=== PATIENT | male | born 1970 ===

== ENCOUNTER 2017-10-21 16:44 | Emergency (ER) | payer OTHER ==
[2017-10-21 16:48] VITALS: BP 154/86; PULSE 101; RESP 18; TEMP 97.9; O2SAT 99
[2017-10-21 17:29] LABS: BASO # 0.1 K/uL (0.0-0.2); BASO % 1.1 % (0.0-2.0); EOS # 0.1 K/uL (0.0-0.7); EOS % 1.9 % (0.0-4.0); HEMATOCRIT 46.7 % (35.0-51.0); LYMPH # 2.9 K/uL (1.0-4.3); LYMPH % 41.9 % (20.0-40.0); MEAN CELL VOLUME 90.9 fl (80.0-94.0); MEAN CORPUSCULAR HEMOGLOBIN 31.3 pg (27.0-31.0); MEAN CORPUSCULAR HGB CONC 34.4 g/dL (33.0-37.0); MEAN PLATELET VOLUME 8.1 fl (7.2-11.7); MONO # 0.6 K/uL (0.0-0.8); NEUT # 3.2 K/uL (1.8-7.0); NEUT % 46.1 % (50.0-75.0); NRBC % 0.1 % (0.0-0.0); RED CELL DISTRIBUTION WIDTH 13.7 % (11.5-14.5); WHITE BLOOD COUNT 6.9 K/uL (4.8-10.8)
[2017-10-21 17:35] LABS: RBC URINE 1 /hpf (0-3); URINE BILIRUBIN NEGATIVE (NEGATIVE); URINE BLOOD SMALL (NEGATIVE); URINE COLOR YELLOW (YELLOW); URINE GLUCOSE (UA) >=500 mg/dL (Normal); URINE KETONE TRACE mg/dL (NEGATIVE); URINE LEUKOCYTE ESTERASE NEG Leu/uL (Negative); URINE PROTEIN 100 mg/dL (NEGATIVE); WBC URINE 1 /hpf (0-5)
--- NOTE | 2017-10-21 17:39 | ED PDOC ---
HPI: Psych/Substance Abuse Time Seen by Provider: 10/21/17 17:01 Chief Complaint (Nursing): Psychiatric Evaluation Chief Complaint (Provider): Psychiatric Evaluation History Per: Patient History/Exam Limitations: intoxication, other (Slurred Speech) Onset/Duration Of Symptoms: Days Additional Complaint(s): Jama is a 47 year old male who was brought by EMS to the Emergency Department for psychiatric evaluation. Patient expresses suicidal ideation, but does not have plan. Patient admits to drinking for the past 5 days after finding out is him PMD: No Family Provider Past Medical History Reviewed: Historical Data, Nursing Documentation, Vital Signs Vital Signs: Last Vital Signs Temp 97.9 F 10/21/17 16:46 Pulse 101 H 10/21/17 16:46 Resp 18 10/21/17 16:46 BP 154/86 H 10/21/17 16:46 Pulse Ox 99 10/21/17 16:46 - Medical History PMH: No Chronic Diseases Denies: Chronic Kidney Disease - Surgical History Surgical History: No Surg Hx - Family History Family History: States: No Known Family Hx - Allergies Allergies/Adverse Reactions: Allergies Allergy/AdvReac Type Severity Reaction Status Date / Time No Known Allergies Allergy Verified 10/21/17 16:46 Review of Systems Psych: Positive for: Suicidal ideation (with no plan) Physical Exam - Reviewed Nursing Documentation Reviewed: Yes Vital Signs Reviewed: Yes - Physical Exam Neurologic/Psych: Positive for: Other (slurred speech, intoxicated) - Laboratory Results Result Diagrams: 10/21/17 17:20 10/21/17 17:20 Interpretation Of Abn Labs: low K+: Kdur provided. - ECG ECG Rhythm: Positive for: Normal QRS, Sinus Rhythm O2 Sat by Pulse Oximetry: 99 (RA) Pulse Ox Interpretation: Normal Medical Decision Making Medical Decision Making: Time: 17:01 Plan: - Alcohol Serum - CMP - Drug Screen, Urine - CBC - Urinalysis - Crisis Evaluation - 1:1 Observation Patient has slurred speech and is intoxicated. Scribe Attestation: Documented by Adin Bo, acting as a scribe for Alyssa Hernandez PA-C Provider Scribe Attestation: All medical record entries made by the Scribe were at my direction and personally dictated by me. I have reviewed the chart and agree that the record accurately reflects my personal performance of the history, physical exam, medical decision making, and the department course for this patient. I have also personally directed, reviewed, and agree with the discharge instructions and disposition. Disposition - Clinical Impression Clinical Impression: Intoxication - Patient ED Disposition Is Patient to be Admitted: Transfer of Care - Disposition Disposition Time: 00:00 Condition: STABLE Forms: [facility] (Bulgarian) Patient Signed Over To: Yamilka Bell (crisis)
[2017-10-21 18:18] LABS: ALB/GLOB RATIO 1.5 (1.0-2.1); ALKALINE PHOSPHATASE 81 U/L (38-126); ALT/SGPT 145 U/L (21-72); AST/SGOT 151 U/L (17-59); BILIRUBIN,TOTAL 0.9 mg/dl (0.2-1.3); BLOOD UREA NITROGEN 11 mg/dl (9-20); CALCIUM 8.6 mg/dL (8.4-10.2); CARBON DIOXIDE 23 mmol/L (22-30); CHLORIDE 98 mmol/L (98-107); GFR AFRICAN-AMERICAN > 60; GLUCOSE,RANDOM 203 mg/dL (75-110); POTASSIUM 3.3 MMOL/L (3.6-5.0); SODIUM 140 mmol/l (132-148); TOTAL PROTEIN 7.9 G/DL (6.3-8.2)
[2017-10-21 18:22] LABS: ALCOHOL SERUM 397 mg/dl (0-10)
[2017-10-21] MEDS ORDERED: Potassium Chloride 10 mEq ER Tab PO ONE (22:04)
--- NOTE | 2017-10-22 04:27 | ED PDOC ---
- Laboratory Results Result Diagrams: 10/21/17 17:20 10/21/17 17:20 - ECG O2 Sat by Pulse Oximetry: 99 (RA) Medical Decision Making Medical Decision Making: Crisis evaluation completed. Disposition - Clinical Impression Clinical Impression: Alcohol intoxication - POA Present On Arrival: None - Disposition Disposition: Routine/Home Disposition Time: 04:26 Condition: GOOD Instructions: Alcohol Intoxication (ED) Forms: [employer] (Mongolian)
[2017-10-22] MEDS ORDERED: Potassium Chloride 10 mEq ER Tab PO ONE (04:48)
--- NOTE | 2017-10-22 10:31 | CARD ---
APPROVED REPORT EKG Measurement Heart [id number] <Conclusion> Normal sinus rhythm Nonspecific T wave abnormality Abnormal ECG
== END 2017-10-22 04:54 | disposition home or self-care (01) ==
LOC: H.ER 16:44
DX: F10.129 Alcohol abuse with intoxication, unspecified (principal); R45.851 Suicidal ideations